=== PATIENT | female | born 1980 ===

== ENCOUNTER 2018-10-05 04:00 | Emergency (ER) | payer MEDICAID, OTHER ==
[2018-10-05 04:23] VITALS: RESP 18
--- NOTE | 2018-10-05 04:52 | ED PDOC ---
HPI: General Adult Time Seen by Provider: 10/05/18 04:17 Chief Complaint (Nursing): Medical Clearance Chief Complaint (Provider): Medical Clearance History Per: Patient History/Exam Limitations: no limitations Additional Complaint(s): 37 y/o female with history of opiate abuse brought to the ED for medical and psychiatric clearance. Patient reports she has chest pain and cough for the past week however patient did not request medical treatment till she was under police arrest. Past Medical History Reviewed: Historical Data, Nursing Documentation, Vital Signs Vital Signs: Last Vital Signs Temp 98.7 F 10/05/18 04:10 Pulse 93 H 10/05/18 04:10 Resp 18 10/05/18 04:10 BP 114/74 10/05/18 04:10 Pulse Ox 98 10/05/18 04:10 - Medical History PMH: Pneumonia, Chronic Kidney Disease Denies: Diabetes, Hepatitis, HIV, HTN, Seizures, Sexually Transmitted Disease - Surgical History Surgical History: No Surg Hx - Family History Family History: States: Unknown Family Hx - Social History Current smoker - smoking cessation education provided: Yes Alcohol: Other (alcohol abuse) Drugs: Opiates (Heroin) - Immunization History Hx Tetanus Toxoid Vaccination: No Hx Influenza Vaccination: No Hx Pneumococcal Vaccination: No - Home Medications Home Medications: Ambulatory Orders Medication Instructions Recorded Clindamycin [Cleocin] 300 mg PO TID #30 cap 08/02/18 Saccharomyces Boulardi [Florastor] 250 mg PO BID #60 cap 08/02/18 - Allergies Allergies/Adverse Reactions: Allergies Allergy/AdvReac Type Severity Reaction Status Date / Time diphenhydramine HCl AdvReac Unknown unknown Verified 10/05/18 04:18 [From [facility]] Review of Systems ROS Statement: Except As Marked, All Systems Reviewed And Found Negative Cardiovascular: Positive for: Chest Pain Respiratory: Positive for: Cough Physical Exam - Reviewed Nursing Documentation Reviewed: Yes Vital Signs Reviewed: Yes - Physical Exam Appears: Positive for: Well, Non-toxic, No Acute Distress Head Exam: Positive for: ATRAUMATIC, NORMAL INSPECTION, NORMOCEPHALIC Skin: Positive for: Normal Color, Warm, DRY Eye Exam: Positive for: Normal appearance, EOMI, PERRL (3 mm dilated but responsive) ENT: Positive for: Normal ENT Inspection Neck: Positive for: Normal, Painless ROM Cardiovascular/Chest: Positive for: Regular Rate, Rhythm. Negative for: Murmur Respiratory: Positive for: Normal Breath Sounds. Negative for: Respiratory Distress Gastrointestinal/Abdominal: Positive for: Normal Exam, Soft. Negative for: Te nderness Back: Positive for: Normal Inspection Extremity: Positive for: Normal ROM. Negative for: Pedal Edema, Deformity Neurologic/Psych: Positive for: Alert, Oriented. Negative for: Motor/Sensory Deficits - ECG O2 Sat by Pulse Oximetry: 98 (RA) Pulse Ox Interpretation: Normal Medical Decision Making Medical Decision Making: Time: 04:40 Initial Impression: 37 y/o brought for medical and psychiatric clearance Initial Plan: * CXR * EKG * Crisis evaluation 05:56 Patient chest x-ray shows no active disease. Patient was evaluated by crisis and is psychiatrically cleared for discharge. Diagnosis is opiate abuse and substance induced mood disorder. Scribe Attestation: Documented by Lior Aguilar acting as a scribe for David Elmore MD. Provider Scribe Attestation: All medical record entries made by the Scribe were at my direction and personally dictated by me. I have reviewed the chart and agree that the record accurately reflects my personal performance of the history, physical exam, medical decision making, and the department course for this patient. I have also personally directed, reviewed, and agree with the discharge instructions and disposition. Disposition - Clinical Impression Clinical Impression: Opiate abuse, episodic - Patient ED Disposition Is Patient to be Admitted: No - Disposition Disposition: Routine/Home Disposition Time: 05:56 Condition: STABLE Additional Instructions: Patient is medically and psychiatrically stable for incarceration Instructions: Opioid Use Disorder Forms: [employer] (Sammarinese)
[2018-10-05 05:23] LABS: BARBITURATES, UR NEGATIVE (NEGATIVE); BENZODIAZEPINES, UR NEGATIVE (NEGATIVE); OPIATES, UR POSITIVE (NEGATIVE); PHENCYCLIDINE, UR POSITIVE (NEGATIVE)
[2018-10-05 07:05] VITALS: BP 106/59; PULSE 70; TEMP 99; O2SAT 99
--- NOTE | 2018-10-05 08:55 | CARD ---
APPROVED REPORT Date of service: 10/05/2018 EKG Measurement Heart [id number] <Conclusion> Normal sinus rhythm Normal Electrocardiogram
--- NOTE | 2018-10-05 09:56 | RAD ---
Date of service: 10/05/2018 HISTORY: chest pain COMPARISON: Portable chest 08/20/2013. FINDINGS: LUNGS: No active pulmonary disease. PLEURA: No significant pleural effusion identified, no pneumothorax apparent. CARDIOVASCULAR: No aortic atherosclerotic calcification present. Normal cardiac size. No pulmonary vascular congestion. OSSEOUS STRUCTURES: No significant abnormalities. VISUALIZED UPPER ABDOMEN: Normal. OTHER FINDINGS: None. IMPRESSION: No interval acute cardiopulmonary disease appreciated.
== END 2018-10-05 06:25 | disposition home or self-care (01) ==
LOC: H.ER 04:00
DX: F11.10 Opioid abuse, uncomplicated (principal); F17.200 Nicotine dependence, unspecified, uncomplicated; Z88.8 Allergy status to other drugs, medicaments and biological substances; R07.89 Other chest pain